=== PATIENT | female | born 1980 | race Caucasian/White ===

== ENCOUNTER 2017-03-21 19:24 | Emergency (ER) | payer SELFPAY ==
[~2017-03-21] VITALS: Ht 167.6 cm; Wt 105.6 kg
[2017-03-21 19:31] VITALS: BP 163/116
[2017-03-21] MEDS ORDERED: PEN-VEE K,VEET500 MG PO (20:25)
[2017-03-21] MEDS ORDERED: MOTRIN800 MG PO (20:25)
[2017-03-21] MEDS ORDERED: ULTRAM50 MG PO (20:25)
[2017-03-21] MEDS ORDERED: PROTONIX40 MG PO (20:55)
[2017-03-21] MEDS ORDERED: ASPIR 8181 M1 PO (20:55)
[2017-03-21] MEDS ORDERED: SPIRONOLACTONE50 MG PO (20:56)
[2017-03-21] MEDS ORDERED: LISINOPRIL40 MG PO (20:57)
[2017-03-21] MEDS ORDERED: FUROSEMIDE40 MG PO (20:57)
== END 2017-03-21 21:29 | disposition home or self-care (01) ==
LOC: EME 19:24
PROC: 3E0T3BZ Introduction of Anesthetic Agent into Peripheral Nerves and Plexi, Percutaneous Approach (ICD-10-PCS; principal; 2017-03-21)
DX: K08.89 Other specified disorders of teeth and supporting structures (principal); K02.9 Dental caries, unspecified; R51 Headache; I10 Essential (primary) hypertension; F17.200 Nicotine dependence, unspecified, uncomplicated
CPT/HCPCS: 99281; 99284; S0020

== ENCOUNTER 2017-07-27 18:35 | Emergency (ER) | payer SELFPAY ==
[~2017-07-27] VITALS: Ht 162.6 cm; Wt 102.6 kg
[~2017-07-27 18:35] MED LIST: ASPIR 8181 M1 PO; FUROSEMIDE40 MG PO; LISINOPRIL40 MG PO; MOTRIN800 MG PO; PEN-VEE K,VEET500 MG PO; PROTONIX40 MG PO; SPIRONOLACTONE50 MG PO; ULTRAM50 MG PO
[2017-07-27 19:09] LABS: HEMATOCRIT 43.1 % (36.0-46.0); HEMOGLOBIN 14.4 G/DL (11.9-15.5); MCH 29.6 PG (29.0-34.0); MCHC 33.4 G/DL (30.0-36.0); MCV 88.7 FL (83-99); PLATELET COUNT 264 K/uL (156-360); RBC DIS.WIDTH-CV 13.2 % (11.8-14.6); RBC DIS.WIDTH-SD 43.1 % (39-53); RED BLOOD COUNT 4.86 M/uL (3.80-5.20); WHITE BLOOD COUNT 7.8 K/uL (4.1-10.2)
[2017-07-27 19:21] LABS: CHLORIDE 101 mEq/L (99-109); SODIUM 138 mEq/L (136-147)
[2017-07-27 19:22] LABS: GLUCOSE 114 mg/dL (70-99)
[2017-07-27 19:26] LABS: GFR ESTIMATE (CALCULATED) > 59 mL/min/
[2017-07-27 19:27] LABS: UREA NITROGEN (BUN) 18 mg/dL (9-23)
[2017-07-27 19:30] LABS: TROP-I INTERPRETATION NEGATIVE; TROPONIN-I 0.02 ng/mL (0.0-0.30)
[2017-07-27] MEDS ORDERED: MEDROL DOSEPAK4 MG PO (21:32)
[2017-07-27] MEDS ORDERED: VENTOLIN HFA18 GM IH (21:32)
[2017-07-27] MEDS ORDERED: ZITHROMAX Z-PA250 MG PO (21:32)
[2017-07-27 21:45] VITALS: BP 152/87
== END 2017-07-27 21:47 | disposition home or self-care (01) ==
LOC: EME 18:35
DX: J20.9 Acute bronchitis, unspecified (principal); I42.9 Cardiomyopathy, unspecified; F17.200 Nicotine dependence, unspecified, uncomplicated; Z79.82 Long term (current) use of aspirin
CPT/HCPCS: 71020; 80048; 84484; 85027; 93005; 94640; 94640 76; 99281; 99284; J7512